=== PATIENT | male | born 1940 | race African-American/Black ===

== ENCOUNTER 2017-06-29 13:51 | Inpatient (IN) | payer MEDICARE, MEDICAID ==
[~2017-06-29] VITALS: Ht 193 cm; Wt 60.4 kg
[2017-06-29] MEDS ORDERED: diphenhydrAMINE HCL 50 MG/ML VIAL IM PRN (17:45)
[2017-06-29] MEDS ORDERED: ALUMINUM/MAGNESIUM/SIMETH 30 ML CUP PO PRN (17:45)
[2017-06-29] MEDS ORDERED: MAGNESIUM HYDROXIDE SUSP 30 ML CUP PO PRN (17:45)
[2017-06-29] MEDS ORDERED: diphenhydrAMINE HCL 50 MG CAP PO PRN (17:45)
[2017-06-29] MEDS ORDERED: LORazepam 2 MG/ML VIAL IM PRN (17:45)
[2017-06-29 18:20] VITALS: BP 102/79; PULSE 108; RESP 16; TEMP 98.2; O2SAT 98
[2017-06-29] MEDS ORDERED: PILL SPLITTER OTHER PRN (18:30)
[2017-06-29] MEDS: CEFUROXIME AXETIL 500 MG TAB PO SCH (20:47)
[2017-06-29] MEDS: risperiDONE 0.25 MG TAB PO SCH ×2 (20:47→21:00)
[2017-06-29] MEDS: ATORVASTATIN 40 MG TAB PO SCH (20:47)
[2017-06-30] MEDS ORDERED: RESP: ALBUTEROL 2.5 MG/IPRATROPIUM 0.5 MG NEB (SCH) NEB ONE (05:00)
[2017-06-30 06:09] VITALS: BP 112/66; PULSE 101; RESP 18; TEMP 98; O2SAT 94
[2017-06-30] MEDS: DIGOXIN 0.125 MG TAB PO SCH (08:11)
[2017-06-30] MEDS: CEFUROXIME AXETIL 500 MG TAB PO SCH ×2 (08:11→21:08)
[2017-06-30] MEDS: AMIODARONE 200 MG TAB PO SCH (08:11)
[2017-06-30] MEDS: TAMSULOSIN HCL 0.4 MG CAP PO SCH (08:11)
[2017-06-30] MEDS: ACETAMINOPHEN 325 MG TAB PO PRN ×2 (08:12→09:04)
[2017-06-30] MEDS: METOPROLOL SUCCINATE 25 MG EXTENDED RELEASE TAB PO SCH (08:13)
[2017-06-30] MEDS: NICOTINE 21 MG/24 HR PATCH T-DERMAL SCH (09:00)
[2017-06-30] MEDS: REMOVE OLD PATCH T-DERMAL SCH (09:00)
[2017-06-30] MEDS ORDERED: RESP: ALBUTEROL 2.5 MG/IPRATROPIUM 0.5 MG NEB (PRN) NEB (09:15)
[2017-06-30 10:28] LABS: ALT (GPT) 31 U/L (12-78); ANION GAP 9 MEQ/L (5-15); AST (GOT) 39 U/L (15-37); BICARBONATE 29.2 MEQ/L (21.0-32.0); BLOOD UREA NITROGEN 45 MG/DL (7-18); CHLORIDE 107 MEQ/L (98-107); GLOMERULAR FILTRATION RATE 58 ML/MIN (>89); POTASSIUM 3.8 MEQ/L (3.5-5.1); SODIUM (NA) 145 MEQ/L (136-145)
[2017-06-30 10:54] LABS: ALKALINE PHOSPHATASE 64 U/L (45-117); HDL CHOLESTEROL 55.1 MG/DL (40.0-60.0); LDL CHOLESTEROL 50 MG/DL (0-99); TOTAL BILIRUBIN ADULT 0.8 MG/DL (0.2-1.0)
[2017-06-30 11:11] LABS: HEMOGLOBIN A1a 1.1 %; HEMOGLOBIN A1b 2.4 %; HEMOGLOBIN Ao 80.3 %; HEMOGLOBIN P3 7.6 %
[2017-06-30 11:27] LABS: AUTOMATED NEUTROPHIL # 6.4 TH/MM3 (1.8-7.7); BASOPHIL % 0.5 % (0.0-2.0); EOSINOPHIL % 0.5 % (0.0-4.0); HEMATOCRIT 35.2 % (39.0-51.0); HEMO FLAGS DIFF FINAL; LYMPHOCYTE # 1.3 TH/MM3 (1.0-4.8); MEAN CELL VOLUME 89.8 FL (80.0-100.0); MEAN CORPUSCULAR HEMOGLOBIN 29.4 PG (27.0-34.0); MEAN CORPUSCULAR HGB CONC 32.8 % (32.0-36.0); MONO % 8.9 % (0.0-8.0); NEUT % 75.1 % (16.0-70.0); PLATELET COUNT 142 TH/MM3 (150-450); RED BLOOD COUNT 3.92 MIL/MM3 (4.50-5.90); RED CELL DISTRIBUTION WIDTH 13.8 % (11.6-17.2); WHITE BLOOD COUNT 8.5 TH/MM3 (4.0-11.0)
[2017-06-30] MEDS ORDERED: ACETAMINOPHEN 325 MG TAB PO PRN (12:00)
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
[2017-06-30] MEDS: traMADol HCL 50 MG TAB PO PRN ×2 (12:30→21:20)
--- NOTE | 2017-06-30 13:17 | PD.CONS ---
HPI Service [facility] Hospitalists Consult Requested By Psychiatry. Reason for Consult Shortness of breath, medical management. Primary Care Physician Non-Staff Diagnoses: History of Present Illness Mr. Bae is a 77 year old [place]cu[place] male who a history of cardiomyopathy ( EF 20%) s/p AICD, paroxysmal atrial fibrillation, PVD, CKD who was admitted to the hospital under lockett act. Hospitalist service was consulted for medical management. At the time of this interview, patient is resting in bed and comfortable in room air. He reports shortness of breath that started about a year ago. He denies any cough, fever, chills. No abdominal pain. No changes in bowel or bladder habits. He reports no leg swelling. Review of Systems Except as stated in HPI: all other systems reviewed are Neg Past Family Social History Allergies: Coded Allergies: No Known Allergies (Unverified , 06/29/17) Past Medical History Cardiomyopathy Systolic CHF CKD Past Surgical History He has had right toe surgery. No other major surgery. Reported Medications Current Medications Lorazepam (Ativan) 0.5 mg Q12H PRN PO MODERATE TO SEVERE ANXIETY; Start at 17:45 Lorazepam (Ativan Inj) 0.5 mg Q12H PRN IM MODERATE TO SEVERE ANXIETY; Start at 17:45 Diphenhydramine HCl (Benadryl) 25 mg Q6H PRN PO For mild anxiety and/or EPS Last administered on 06/29/17t 21:17; Start 06/29/17 at 17:45 Diphenhydramine HCl (Benadryl Inj) 25 mg Q6H PRN IM For mild anxiety and/or EPS ; Start 06/29/17 at 17:45 Acetaminophen (Tylenol) 650 mg Q4H PRN PO Pain 1-5 or Temp >101F Last administered on 06/30/17 09:04; Start 06/29/17 at 17:45 Magnesium Hydroxide (Milk Of Magnesia Liq) 30 ml DAILY PRN PO CONSTIPATION; Start 06/29/17 at 17:45 Al Hydrox/Mg Hydrox/Simethicone (Mag-Al Plus Susp Liq) 30 ml Q6H PRN PO DYSPEPSIA; Start 06/29/17 at 17:45 Nicotine (Habitrol 21 Mg Patch.24 Hr) 1 patch DAILY T-DERMAL ; Start 06/30/17 at 09:00 Miscellaneous Information 1 DAILY T-DERMAL ; Start 06/30/17 at 09:00 Amiodarone HCl (Cordarone) 200 mg DAILY PO Last administered on 06/30/17 08:11 ; Start 06/30/17 at 09:00 Atorvastatin Calcium (Lipitor) 40 mg HS PO Last administered on 06/30/17 21:08 ; Start 06/29/17 at 21:00 Cefuroxime Axetil (Ceftin) 500 mg Q12HR PO Last administered on 06/30/17 21:08 ; Start 06/29/17 at 21:00; Stop 07/04/17 at 20:59 Digoxin (Lanoxin) 0.125 mg MoWeFr@0900 PO Last administered on 06/30/17 08:11 ; Start 06/30/17 at 09:00 Metoprolol Succinate (Toprol Xl) 12.5 mg DAILY PO Last administered on 08:13; Start 06/30/17 at 09:00 Risperidone (risperDAL) 0.25 mg HS PO ; Start 06/29/17 at 21:00; Stop 06/30/17 at 12:21; Status DC Tamsulosin HCl (Flomax) 0.4 mg DAILY PO Last administered on 06/30/17 08:11; Start 06/30/17 at 09:00 Miscellaneous (Pill Splitter) 1 ea UNSCH PRN OTHER SEE LABEL COMMENTS; Start at 18:30 Albuterol/ Ipratropium (Duoneb Neb) 1 ampule NOW ONCE NEB Last administered on 06/30/17 05:00; Start 06/30/17 at 05:00; Stop 06/30/17 at 05:01; Status DC Albuterol/ Ipratropium (Duoneb Neb) 1 ampule Q4HR NEB PRN NEB DYSPNEA; Start at 09:15 Tramadol HCl (Ultram) 50 mg Q12H PRN PO PAIN SCALE 6 TO 10 Last administered on 06/30/17 21:20; Start 06/30/17 at 09:15 Acetaminophen (Tylenol) 650 mg Q4H PRN PO Pain 1-5 or Temp >101F; Start at 12:00 Family History Mother - heart disease Father - enlarged heart. Social History Denies using tobacco, alcohol or illicit drugs. Physical Exam Vital Signs Vital Signs Date Time Temp Pulse Resp B/P (MAP) Pulse Ox O2 Delivery O2 Flow Rate FiO2 06/30/17 06:09 98.0 101 18 112/66 (81) 94 06/29/17 18:20 98.2 108 16 102/79 (87) 98 Physical Exam GENERAL: This is a well-nourished, well-developed patient, in no apparent distress. SKIN: No rashes, ecchymoses or lesions. Warm and dry. HEAD: Atraumatic. Normocephalic. No temporal or scalp tenderness. EYES: Pupils equal round and reactive. No injection or drainage. ENT: Nose without bleeding, purulent drainage or septal hematoma. Airway patent. NECK: Trachea midline. No lymphadenopathy. Supple, nontender, no meningeal signs. CARDIOVASCULAR: Regular rate and rhythm without murmurs, gallops, or rubs. No JVD. RESPIRATORY: Clear to auscultation. Breath sounds equal bilaterally. No wheezes , rales, or rhonchi. GASTROINTESTINAL: Abdomen soft, non-tender, nondistended. No guarding. MUSCULOSKELETAL: Extremities without clubbing, cyanosis, or edema. NEUROLOGICAL: Awake and alert. Cranial nerves II through XII intact. No focal neurological deficits. Normal speech. Laboratory Laboratory Tests Test 06/30/17 07:47 White Blood Count 8.5 Red Blood Count 3.92 Hemoglobin 11.5 Hematocrit 35.2 Mean Corpuscular Volume 89.8 Mean Corpuscular Hemoglobin 29.4 Mean Corpuscular Hemoglobin Concent 32.8 Red Cell Distribution Width 13.8 Platelet Count 142 Mean Platelet Volume 9.0 Neutrophils (%) (Auto) 75.1 Lymphocytes (%) (Auto) 15.0 Monocytes (%) (Auto) 8.9 Eosinophils (%) (Auto) 0.5 Basophils (%) (Auto) 0.5 Neutrophils # (Auto) 6.4 Lymphocytes # (Auto) 1.3 Monocytes # (Auto) 0.8 Eosinophils # (Auto) 0.0 Basophils # (Auto) 0.0 CBC Comment DIFF FINAL Differential Comment Blood Urea Nitrogen 45 Creatinine 1.44 Random Glucose 120 Total Protein 8.0 Albumin 3.4 Calcium Level 9.0 Alkaline Phosphatase 64 Aspartate Amino Transf (AST/SGOT) 39 Alanine Aminotransferase (ALT/SGPT) 31 Total Bilirubin 0.8 Sodium Level 145 Potassium Level 3.8 Chloride Level 107 Carbon Dioxide Level 29.2 Anion Gap 9 Estimat Glomerular Filtration Rate 58 Hemoglobin A1c 6.5 Triglycerides Level 106 Cholesterol Level 126 LDL Cholesterol 50 HDL Cholesterol 55.1 Cholesterol/HDL Ratio 2.28 Vitamin B12 Level 1246 25-Hydroxy Vitamin D Total 10.2 Thyroid Stimulating Hormone 3rd Gen 4.720 Result Diagram: 06/30/17 0747 06/30/17 0747 Imaging Last Impressions Chest X-Ray 06/30/17 0000 Signed Impressions: Service Date/Time: Friday, June 30, 2017 12:23 - CONCLUSION: 1. Cardiomegaly without radiographic evidence to suggest CHF. 2. Blunting of the right costophrenic angle either related to a tiny effusion or pleural scarring. Riley Elena Jr., MD Assessment and Plan Problem List: (1) Adjustment disorder with mixed disturbance of emotions and conduct ICD Code: F43.25 - Adjustment disorder with mixed disturbance of emotions and conduct (2) Diabetes mellitus ICD Code: E11.9 - Type 2 diabetes mellitus without complications (3) CKD (chronic kidney disease) stage 3, GFR 30-59 ml/min ICD Code: N18.3 - Chronic kidney disease, stage 3 (moderate) (4) Systolic CHF, chronic ICD Code: I50.22 - Chronic systolic (congestive) heart failure (5) Cardiomyopathy ICD Code: I42.9 - Cardiomyopathy, unspecified Assessment and Plan Mr. Bae is a 77 year old male with a history of Cardiomyopathy, systolic CHF , CKD who was admitted to the psychiatry service under lockett act. Hospitalist service was consulted for medical management. - Adjustment disorder - management per psychiatry - Cardiomyopathy - EF reportedly 20%. - Chronic systolic congestive heart failure - Paroxysmal atrial fibrillation - Continue metoprolol succinate 12.5mg Qday, digoxin 0.125mg Qday, Amiodarone 200mg Qday - Continue Lipitor 40mg QHS. - If creatinine 1.44 is this patient's baseline, we should also consider GIULIANA inhibitor - BP is on the lower side. It would be difficult to initiate any diuretics ( Lasix, Aldactone). - [id number] score would be 5 (Age, DM, CHF, PVD) - Unless there is any contraindications, patient would benefit from anti- coagulation. Recommend apixaban 5mg BID. - Will discuss with family members regarding anti-coagulation. - Dyspnea - likely due to cardiomyopathy, CHF. - Will continue DuoNeb. CXR reviewed by me on 06/30/2017 - shows enlarged heart. - Will obtain BNP. - Supplemental O2 to keep O2 sat > 88%. - CKD stage III - Continue to monitor periodically. Avoid nephrotoxins. - BPH - Continue Tamsulosin 0.4mg Qday. - Elevated TSH - will check free T4. Suspected subclinical hypothyroidism. Full code. Ambulation. Thank you for the consult. We will continue to follow this patient with you. Maynor Davenport DO Jun 30, 2017 13:16
--- NOTE | 2017-06-30 13:43 | RADRPT ---
EXAM DATE/TIME: 06/30/2017 12:23 [place] COMPARISON: No previous studies available for comparison. INDICATIONS : Evaluate for respiratory disease. MEDICAL HISTORY : None. SURGICAL HISTORY : Pacemaker. ENCOUNTER: Initial ACUITY: 1 day PAIN SCORE: 0/10 LOCATION: chest FINDINGS: A single portable frontal view of the chest shows moderate cardiomegaly. No significant pulmonary vas cular engorgement. Lungs are hyperaerated. Blunting of the lateral right costophrenic angle. No infil trate. Pacing device overlies the left chest. Scoliotic spine. CONCLUSION: 1. Cardiomegaly without radiographic evidence to suggest CHF. 2. Blunting of the right costophrenic angle either related to a tiny effusion or pleural scarring. Riley Elena Jr., MD on June 30, 2017 at 13:40 Board Certified Radiologist. This report was verified electronically.
[2017-06-30 16:30] VITALS: BP 97/65; PULSE 81; RESP 18; TEMP 97.5; O2SAT 94
--- NOTE | 2017-06-30 16:41 | EKG ---
Date Performed: 06/30/2017 Time Performed: 10:23:40 PTAGE: 77 years EKG: ELECTRONIC VENTRICULAR PACEMAKER MARKED ST ELEVATION, CONSIDER ANTEROLATERAL INJURY MARKED ST DEPRESSION, CONSIDER SUBENDOCARDIAL INJURY ACUTE PA NO PREVIOUS TRACING DOCTOR: Julia Cope Interpretating Date/Time 06/30/2017 16:38:43
[2017-06-30] MEDS: ATORVASTATIN 40 MG TAB PO SCH (21:08)
[2017-07-01 05:25] VITALS: BP 103/57; PULSE 56; RESP 18; TEMP 97.7; O2SAT 94
[2017-07-01] MEDS: AMIODARONE 200 MG TAB PO SCH (08:47)
[2017-07-01] MEDS: CEFUROXIME AXETIL 500 MG TAB PO SCH ×2 (08:47→20:38)
[2017-07-01] MEDS: TAMSULOSIN HCL 0.4 MG CAP PO SCH (09:00)
[2017-07-01] MEDS: NICOTINE 21 MG/24 HR PATCH T-DERMAL SCH (09:00)
[2017-07-01] MEDS: REMOVE OLD PATCH T-DERMAL SCH (09:00)
[2017-07-01] MEDS: METOPROLOL SUCCINATE 25 MG EXTENDED RELEASE TAB PO SCH (09:00)
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
--- NOTE | 2017-07-01 14:55 | HHI.PYPN ---
Subjective Remarks Patient seen in his room with nurse Courtney, chart review, patient laying in bed with nasal oxygen on he is somewhat calmer and less irritable today than yesterday. Though he still minimizes behaviors that led to this hospitalization. However he has been no significant behavioral problems on the unit. For now continue treatment. Placement may become problematic Review of Systems Except as stated in HPI: all other systems reviewed are Neg Objective Alert: Yes [place]: Person, Place, Date Mood: Anxious, Calm, Depressed Affect: Restricted Memory Intact: Comment (very poor) Hallucinations: Other (denies) Delusions: Yes Delusion Type: Grandiose (vague), Paranoid (vague) Suicidal: Ideation (denies) Homicidal: Ideation (denies) Insight/Judgment Poor Vitals/IOs Vital Signs Date Time Temp Pulse Resp B/P (MAP) Pulse Ox O2 Delivery O2 Flow Rate FiO2 07/01/17 05:25 97.7 56 18 103/57 (72) 94 Intake and Output 07/01/17 07/01/17 07/02/17 08:00 16:00 00:00 Intake Total 480 ml Balance 480 ml Assessment & Plan Problem List: (1) Adjustment disorder with mixed disturbance of emotions and conduct ICD Codes: F43.25 - Adjustment disorder with mixed disturbance of emotions and conduct Assessment & Plan Estimated LOS: days patient remains somewhat depressed confused with a decrease in his irritability. Compliant medications Justification for Cont. Inpt. At the present time patient will decompensate if placed in a lower level of care Discharge Planning To be determined Request HC Surrog/Guard Advoc?: No Eliu Valdivia MD Jul 01, 2017 14:55
[2017-07-01] MEDS: traMADol HCL 50 MG TAB PO PRN (16:23)
--- NOTE | 2017-07-01 17:31 | HHI.PR ---
Subjective Remarks Follow up for dyspnea, systolic CHF, cardiomyopathy. Patient is resting in bed, currently on O2 via nasal cannula. He gets agitated when start any discussion about his cardiomyopathy or atrial fibrillation. He is not in any acute distress. Objective Vitals Vital Signs Date Time Temp Pulse Resp B/P (MAP) Pulse Ox O2 Delivery O2 Flow Rate FiO2 07/01/17 05:25 97.7 56 18 103/57 (72) 94 I/O 06/30/17 06/30/17 06/30/17 07/01/17 07/01/17 07/01/17 07:00 15:00 23:00 07:00 15:00 23:00 Intake Total 820 ml 780 ml 480 ml Balance 820 ml 780 ml 480 ml Intake Oral 820 ml 780 ml 480 ml # Voids 2 5 2 Result Diagram: 06/30/17 0747 06/30/17 0747 Imaging Last Impressions Chest X-Ray 06/30/17 0000 Signed Impressions: Service Date/Time: Friday, June 30, 2017 12:23 - CONCLUSION: 1. Cardiomegaly without radiographic evidence to suggest CHF. 2. Blunting of the right costophrenic angle either related to a tiny effusion or pleural scarring. Riley Elena Jr., MD Objective Remarks GENERAL: Alert, NAD. SKIN: Warm and dry. HEAD: Normocephalic. EYES: No scleral icterus. No injection or drainage. NECK: Supple, trachea midline. No JVD or lymphadenopathy. CARDIOVASCULAR: Regular rate and rhythm without murmurs, gallops, or rubs. RESPIRATORY: Moderate air entry. No appreciable wheezing or crackles. GASTROINTESTINAL: Abdomen soft, non-tender, nondistended. MUSCULOSKELETAL: No cyanosis, or edema. BACK: Nontender without obvious deformity. No CVA tenderness. Procedures None. A/P Problem List: (1) Adjustment disorder with mixed disturbance of emotions and conduct ICD Code: F43.25 - Adjustment disorder with mixed disturbance of emotions and conduct (2) Diabetes mellitus ICD Code: E11.9 - Type 2 diabetes mellitus without complications (3) CKD (chronic kidney disease) stage 3, GFR 30-59 ml/min ICD Code: N18.3 - Chronic kidney disease, stage 3 (moderate) (4) Systolic CHF, chronic ICD Code: I50.22 - Chronic systolic (congestive) heart failure (5) Cardiomyopathy ICD Code: I42.9 - Cardiomyopathy, unspecified Assessment and Plan Mr. Bae is a 77 year old male with a history of Cardiomyopathy, systolic CHF , CKD who was admitted to the psychiatry service under lockett act. Hospitalist service was consulted for medical management. - Adjustment disorder - management per psychiatry - Cardiomyopathy - EF reportedly 20%. - Chronic systolic congestive heart failure - Paroxysmal atrial fibrillation - Continue metoprolol succinate 12.5mg Qday, digoxin 0.125mg Qday, Amiodarone 200mg Qday - Continue Lipitor 40mg QHS. - If creatinine 1.44 is this patient's baseline, we should also consider GIULIANA inhibitor - BP is on the lower side. It would be difficult to initiate any diuretics ( Lasix, Aldactone). - [id number] score would be 5 (Age, DM, CHF, PVD) - I have tried to contact patient's daughter without success. - Patient is currently hemodynamically stable, CHF is well compensated. Afib is well controlled. - I would recommend discussion with outpatient PCP and/or outpatient cardiology regarding Anti-coagulation. - It would be strongly advisable to obtain an outpatient pumper helper with regards to Cardiomyopathy and Afib. - Dyspnea - likely due to cardiomyopathy, CHF. - Will continue DuoNeb. CXR reviewed by me on 06/30/2017 - shows enlarged heart. - BNP is 1456. No evidence of fluid overload, however. BP is on the lower side. Patient will not tolerate diuretics well. - Supplemental O2 to keep O2 sat > 88%. - CKD stage III - Continue to monitor periodically. Avoid nephrotoxins. - BPH - Continue Tamsulosin 0.4mg Qday. - Elevated TSH - Free T4 within normal range. This is likely subclinical hypothyroidism. Full code. Ambulation. Patient can be discharged from medical standpoint. Will sign off. Please contact [facility] if there is any question. Maynor Davenport DO Jul 01, 2017 17:31
[2017-07-01 17:59] VITALS: BP 98/74; PULSE 81; RESP 18; TEMP 98.1; O2SAT 100
[2017-07-01] MEDS: ATORVASTATIN 40 MG TAB PO SCH (20:38)
[2017-07-02] MEDS: LORazepam 0.5 MG TAB PO PRN ×2 (02:28→21:15)
[2017-07-02] MEDS: traMADol HCL 50 MG TAB PO PRN ×2 (04:50→21:15)
[2017-07-02 05:28] VITALS: BP 96/51; PULSE 93; RESP 15; TEMP 97.6; O2SAT 95
--- NOTE | 2017-07-02 07:18 | MB ---
cc: RAEGAN KLEIN M.D. DATE OF CONSULTATION 07/01/2017 REASON FOR CONSULTATION Dementia. HISTORY OF PRESENT ILLNESS Mr. Bae is a 77-year-old man who was admitted to the Psychiatry Service under Briscoe Act. He has a history of cardiomyopathy as well as atrial fibrillation. He has been having difficulty with his memory and agitation as well. PAST MEDICAL HISTORY 1. Remarkable for cardiomyopathy with an EF of 20%. 2. Atrial fibrillation. 3. Congestive heart failure. 4. Stage III kidney disease. 5. BPH. 6. Hypothyroidism. CURRENT MEDICATIONS 1. Tylenol. 2. DuoNeb. 3. Ultram. 4. Furantoin. 5. Cordarone. 6. Lanoxin. 7. Toprol XL. 8. Flomax. 9. Lipitor. 10. Ceftin. 11. Ativan. 12. Benadryl. NEUROLOGIC EXAMINATION Blood pressure is 98/74, pulse 81, respirations 18, temperature 98 degrees. Higher Cortical Function - He is alert, oriented x 3. Recalls 1/3 objects in 3 minutes. Remote memory is intact. He can name objects normally. Speech is within normal limits with normal fluency. He follows commands well. Normal comprehension. There is no neglect phenomena, no frontal release signs. Cranial nerves are intact. On motor exam he has got 5/5 strength of all groups. There is no drift. Muscle tone is normal. Reflexes symmetric. Gait is normal. LABORATORY DATA White count 8500, hemoglobin 11.5, hematocrit of 37%, platelet count 142,000. Sodium was 145, potassium 3.8, chloride 107, CO2 29, BUN is 45, creatinine 1.44, GFR is 58, glucose 120, calcium 9, AST 39, ALT 31, BNP 1456. B12 1246. T4 1.38, TSH 4.72. IMPRESSION The patient has evidence of a mild dementia, mainly with recent memory loss. RECOMMENDATIONS 1. We will get a CT of the brain to rule out a multi-infarct dementia. 2. Consider a trial of low-dose Aricept 5 mg daily. MD JAVIER Topete/SCOOTER /7:16 PM /7:08 AM
[2017-07-02] MEDS: CEFUROXIME AXETIL 500 MG TAB PO SCH ×2 (08:35→21:06)
[2017-07-02] MEDS: AMIODARONE 200 MG TAB PO SCH (08:35)
[2017-07-02] MEDS: TAMSULOSIN HCL 0.4 MG CAP PO SCH (09:00)
[2017-07-02] MEDS: DIGOXIN 0.125 MG TAB PO SCH (09:00)
[2017-07-02] MEDS: NICOTINE 21 MG/24 HR PATCH T-DERMAL SCH (09:00)
[2017-07-02] MEDS: METOPROLOL SUCCINATE 25 MG EXTENDED RELEASE TAB PO SCH (09:00)
[2017-07-02] MEDS: REMOVE OLD PATCH T-DERMAL SCH (09:00)
--- NOTE | 2017-07-02 11:09 | HHI.PYPN ---
Subjective Remarks Patient seen in his room with nurse Kat, chart review, patient compliant medication. Patient sitting in his room with his nasal oxygen, is very mildly dyspneic. He is somewhat critical complaining about his oxygen equipment, his stay here, however he also did make a joke about his roommate. He does denies suicidality homicidality or voices at this Review of Systems Except as stated in HPI: all other systems reviewed are Neg Objective Alert: Yes [place]: Person, Place, Date Mood: Anxious, Calm, Depressed Affect: Restricted Memory Intact: Comment (very poor) Hallucinations: Other (denies) Delusions: Yes Delusion Type: Grandiose (vague), Paranoid (vague) Suicidal: Ideation (denies) Homicidal: Ideation (denies) Insight/Judgment Very poor Vitals/IOs Vital Signs Date Time Temp Pulse Resp B/P (MAP) Pulse Ox O2 Delivery O2 Flow Rate FiO2 07/02/17 05:28 97.6 93 15 96/51 (66) 95 Intake and Output 07/02/17 07/02/17 07/03/17 08:00 16:00 00:00 Intake Total 360 ml 720 ml Balance 360 ml 720 ml Assessment & Plan Problem List: (1) Adjustment disorder with mixed disturbance of emotions and conduct ICD Codes: F43.25 - Adjustment disorder with mixed disturbance of emotions and conduct Assessment & Plan Estimated LOS: days patient continues irritable somewhat angry, though compliant medications. For now continue treatment Justification for Cont. Inpt. At this time patient decompensated placed in a lower level of care Discharge Planning To be determined Request HC Surrog/Guard Advoc?: Eliu Shepherd MD Jul 02, 2017 11:09
--- NOTE | 2017-07-02 16:24 | RADRPT ---
EXAM DATE/TIME: 07/02/2017 15:40 [place] COMPARISON: No previous studies available for comparison. INDICATIONS : Dementia, behavioral disturbance. RADIATION DOSE: 42.95 CTDIvol (mGy) MEDICAL HISTORY : Cardiovascular disease. Hypertension. SURGICAL HISTORY : Pacemaker. ENCOUNTER: Initial ACUITY: 1 day PAIN SCALE: 0/10 LOCATION: cranial TECHNIQUE: Multiple contiguous axial images were obtained of the head. Using automated exposure control and adj ustment of the mA and/or kV according to patient size, radiation dose was kept as low as reasonably a chievable to obtain optimal diagnostic quality images. DICOM format image data is available electro nically for review and comparison. FINDINGS: CEREBRUM: The ventricles are normal for age. No evidence of midline shift, mass lesion, hemorrhage or acute in farction. No extra-axial fluid collections are seen. POSTERIOR FOSSA: The cerebellum and brainstem are intact. The 4th ventricle is midline. The cerebellopontine angle i s unremarkable. EXTRACRANIAL: The visualized portion of the orbits is intact. SKULL: The calvaria is intact. No evidence of skull fracture. CONCLUSION: Negative for acute process. Willy Heller MD FACR on July 02, 2017 at 16:22 Board Certified Radiologist. This report was verified electronically.
--- NOTE | 2017-07-02 17:05 | HHI.PR ---
Review/Management Diagnosis dementia Plan consider trial of aricept 5 mg daily Diagnosis/Plan: Subjective Subjective Comments No acute events reported Active Medications Current Medications Medications (Trade) Dose Ordered Sig/Javon Route Start Time Stop Time Status Last Admin (Ativan) 0.5 mg Q12H PRN PO 06/29/17 17:45 07/02/17 02:28 (Ativan Inj) 0.5 mg Q12H PRN IM 06/29/17 17:45 (Benadryl) 25 mg Q6H PRN PO 06/29/17 17:45 06/29/17 21:17 (Benadryl Inj) 25 mg Q6H PRN IM 06/29/17 17:45 (Tylenol) 650 mg Q4H PRN PO 06/29/17 17:45 06/30/17 09:04 (Milk Of Magnesia Liq) 30 ml DAILY PRN PO 06/29/17 17:45 (Mag-Al Plus Susp Liq) 30 ml Q6H PRN PO 06/29/17 17:45 (Habitrol 21 Mg Patch.24 Hr) 1 patch DAILY T-DERMAL 06/30/17 09:00 Miscellaneous Information 1 DAILY T-DERMAL 06/30/17 09:00 (Cordarone) 200 mg DAILY PO 06/30/17 09:00 07/02/17 08:35 (Lipitor) 40 mg HS PO 06/29/17 21:00 07/01/17 20:38 (Ceftin) 500 mg Q12HR PO 06/29/17 21:00 07/04/17 20:59 07/02/17 08:35 (Lanoxin) 0.125 mg MoWeFr@0900 PO 06/30/17 09:00 06/30/17 08:11 (Toprol Xl) 12.5 mg DAILY PO 06/30/17 09:00 06/30/17 08:13 (Flomax) 0.4 mg DAILY PO 06/30/17 09:00 06/30/17 08:11 (Pill Splitter) 1 ea UNSCH PRN OTHER 06/29/17 18:30 (Duoneb Neb) 1 ampule Q4HR NEB PRN NEB 06/30/17 09:15 (Ultram) 50 mg Q12H PRN PO 06/30/17 09:15 07/02/17 04:50 (Tylenol) 650 mg Q4H PRN PO 06/30/17 12:00 Allergies Allergies Coded Allergies No Known Allergies (Unverified06/29/17) Exam I&O / VS 07/02/17 07/02/17 07/03/17 15:00 23:00 07:00 Intake Total 1200 ml Balance 1200 ml Intake Oral 1200 ml Vital Signs Date Time Temp Pulse Resp B/P (MAP) Pulse Ox O2 Delivery O2 Flow Rate FiO2 07/02/17 05:28 97.6 93 15 96/51 (66) 95 07/01/17 17:59 98.1 81 18 98/74 (82) [address] brain--normal for age Adam Malik PhD Jul 02, 2017 17:05
[2017-07-02 17:16] VITALS: BP 104/66; PULSE 110; RESP 18; TEMP 98.2; O2SAT 98
[2017-07-02] MEDS: ATORVASTATIN 40 MG TAB PO SCH (21:06)
[2017-07-03 06:06] VITALS: BP 89/53; PULSE 94; TEMP 98.2; O2SAT 97
[2017-07-03] MEDS: LORazepam 0.5 MG TAB PO PRN (08:43)
[2017-07-03] MEDS: CEFUROXIME AXETIL 500 MG TAB PO SCH ×2 (08:44→20:53)
[2017-07-03] MEDS: TAMSULOSIN HCL 0.4 MG CAP PO SCH (08:44)
[2017-07-03] MEDS: traMADol HCL 50 MG TAB PO PRN ×2 (08:45→21:06)
[2017-07-03] MEDS: AMIODARONE 200 MG TAB PO SCH (08:47)
[2017-07-03] MEDS: METOPROLOL SUCCINATE 25 MG EXTENDED RELEASE TAB PO SCH (08:47)
[2017-07-03] MEDS: NICOTINE 21 MG/24 HR PATCH T-DERMAL SCH (08:48)
[2017-07-03] MEDS: REMOVE OLD PATCH T-DERMAL SCH (08:48)
[2017-07-03 11:22] VITALS: BP 124/80; PULSE 104; O2SAT 98
--- NOTE | 2017-07-03 13:32 | HHI.PYPN ---
Subjective Remarks Patient was seen and case discussed with nursing. Patient is oppositional and guarded during the interview. Continues to deny his behavior turns his grandchild before admission. Pressure was low was repeated and was within normal limits. Patient has been behaving well on the unit. No physical or verbal outbursts. Compliant with medications Objective Alert: Yes [place]: Person, Place, Date Mood: Anxious, Calm, Depressed Affect: Blunted Memory Intact: Comment (very poor) Hallucinations: Other (denies) Delusions: Yes Delusion Type: Grandiose (vague), Paranoid (vague) Suicidal: Ideation (denies) Homicidal: Ideation (denies) Insight/Judgment Poor Vitals/IOs Vital Signs Date Time Temp Pulse Resp B/P (MAP) Pulse Ox O2 Delivery O2 Flow Rate FiO2 07/03/17 11:22 104 124/80 (95) 98 07/03/17 06:06 98.2 07/02/17 17:16 18 Assessment & Plan Problem List: (1) Adjustment disorder with mixed disturbance of emotions and conduct ICD Codes: F43.25 - Adjustment disorder with mixed disturbance of emotions and conduct Assessment & Plan Continue current treatment plan Justification for Cont. Inpt. Patient will decompensate in a less restrictive setting Request HC Surrog/Guard Advoc?: No Ward Enamorado DO Jul 03, 2017 13:32
[2017-07-03] MEDS: ATORVASTATIN 40 MG TAB PO SCH (20:54)
[2017-07-04 05:43] VITALS: BP 123/70; PULSE 71; RESP 18; TEMP 98.1; O2SAT 98
[2017-07-04] MEDS: traMADol HCL 50 MG TAB PO PRN ×3 (06:42→21:07)
[2017-07-04] MEDS: REMOVE OLD PATCH T-DERMAL SCH ×2 (09:00→14:39)
[2017-07-04] MEDS: TAMSULOSIN HCL 0.4 MG CAP PO SCH ×2 (09:00→14:39)
[2017-07-04] MEDS: AMIODARONE 200 MG TAB PO SCH ×2 (09:00→14:38)
[2017-07-04] MEDS: NICOTINE 21 MG/24 HR PATCH T-DERMAL SCH ×2 (09:00→14:40)
[2017-07-04] MEDS: CEFUROXIME AXETIL 500 MG TAB PO SCH ×2 (09:00→14:40)
[2017-07-04] MEDS: METOPROLOL SUCCINATE 25 MG EXTENDED RELEASE TAB PO SCH ×2 (09:00→14:39)
--- NOTE | 2017-07-04 11:05 | HHI.PYPN ---
Subjective Remarks Patient was seen and case discussed with nursing. Patient is refusing all of his medications. Psychoeducation was done that a medical doctor reviewed his medications and prescribed appropriate doses. Patient became belligerent and argumentative. Seclusive to room. Objective Alert: Yes [place]: Person, Place Mood: Depressed, Oppositional Affect: Other (irritable) Memory Intact: Comment (very poor) Hallucinations: Other (denies) Delusions: Yes Delusion Type: Grandiose (vague), Paranoid (concerning medications) Suicidal: Ideation (denies) Homicidal: Ideation (denies) Insight/Judgment Poor Vitals/IOs Vital Signs Date Time Temp Pulse Resp B/P (MAP) Pulse Ox O2 Delivery O2 Flow Rate FiO2 07/04/17 05:43 98.1 71 18 123/70 (87) 98 Intake and Output 07/04/17 07/04/17 07/05/17 08:00 16:00 00:00 Intake Total 360 ml Balance 360 ml Assessment & Plan Problem List: (1) Adjustment disorder with mixed disturbance of emotions and conduct ICD Codes: F43.25 - Adjustment disorder with mixed disturbance of emotions and conduct Assessment & Plan Continue current treatment plan Justification for Cont. Inpt. Patient will decompensate in a less restrictive setting Request HC Surrog/Guard Advoc?: No Ward Enamorado DO Jul 04, 2017 11:05
[2017-07-04 17:54] VITALS: BP 124/81; PULSE 94; RESP 16; TEMP 97.7; O2SAT 99
[2017-07-04] MEDS: ATORVASTATIN 40 MG TAB PO SCH (21:06)
[2017-07-04] MEDS: LORazepam 0.5 MG TAB PO PRN (21:07)
[2017-07-05 05:17] VITALS: BP 107/58; PULSE 119; RESP 18; TEMP 97.9
[2017-07-05] MEDS: METOPROLOL SUCCINATE 25 MG EXTENDED RELEASE TAB PO SCH (09:00)
[2017-07-05] MEDS: DIGOXIN 0.125 MG TAB PO SCH (09:00)
[2017-07-05] MEDS: TAMSULOSIN HCL 0.4 MG CAP PO SCH (09:00)
[2017-07-05] MEDS: AMIODARONE 200 MG TAB PO SCH (09:00)
[2017-07-05] MEDS ORDERED: METOPROLOL TARTRATE 25 MG TAB PO ONE ×2 (11:00→18:15)
[2017-07-05] MEDS ORDERED: DIGOXIN 0.25 MG TAB PO ONE (11:00)
--- NOTE | 2017-07-05 11:44 | HHI.PR ---
Subjective Remarks Contacted due to hypotension, tachycardia. Systolic blood pressure 110, currently tachycardic with heart rate 94. Although heart rate has been up to 110 Patient seen this morning around 11 AM. He reports that shortness of breath somewhat worse starting yesterday. Denies any cough. He reports that he usually has fluid restrictions, however here has been drinking well. Objective Vital Signs Date Time Temp Pulse Resp B/P (MAP) Pulse Ox O2 Delivery O2 Flow Rate FiO2 07/05/17 05:17 97.9 119 18 107/58 (74) 07/04/17 17:54 97.7 94 16 124/81 (95) 99 I/O 07/04/17 07/04/17 07/04/17 07/05/17 07/05/17 07/05/17 06:59 14:59 22:59 06:59 14:59 22:59 Intake Total 360 ml 840 ml Balance 360 ml 840 ml Intake Oral 360 ml 600 ml Oral Supplement 240 ml # Voids 3 2 Imaging Last Impressions Head CT 07/01/17 0000 Signed Impressions: Service Date/Time: Sunday, July 02, 2017 15:40 - CONCLUSION: Negative for acute process. Willy Heller MD FACR Chest X-Ray 06/30/17 0000 Signed Impressions: Service Date/Time: Friday, June 30, 2017 12:23 - CONCLUSION: 1. Cardiomegaly without radiographic evidence to suggest CHF. 2. Blunting of the right costophrenic angle either related to a tiny effusion or pleural scarring. Riley Elena Jr., MD Objective Remarks GENERAL: Patient lying in bed on side. Awake. Alert. SKIN: Warm and dry. HEAD: Normocephalic. EYES: No scleral icterus. No injection or drainage. NECK: Supple, trachea midline. No lymphadenopathy. CARDIOVASCULAR: Regular rate and rhythm without murmurs, gallops, or rubs. RESPIRATORY: Breath sounds equal bilaterally. No accessory muscle use. No wheezes or rhonchi. GASTROINTESTINAL: Abdomen soft, non-tender, nondistended. MUSCULOSKELETAL: No cyanosis, or edema. BACK: Nontender without obvious deformity. No CVA tenderness. A/P Assessment and Plan Mr. Bae is a 77 year old male with a history of Cardiomyopathy, systolic CHF , CKD who was admitted to the psychiatry service under lockett act. Hospitalist service was consulted for medical management. //Adjustment disorder - management per psychiatry //Cardiomyopathy - EF reportedly 20%. // Chronic systolic congestive heart failure // Paroxysmal atrial fibrillation - Continue metoprolol succinate 12.5mg Qday, digoxin 0.125mg Qday, Amiodarone 200mg Qday - Continue Lipitor 40mg QHS. - If creatinine 1.44 is this patient's baseline, we should also consider GIULIANA inhibitor - BP is on the lower side. It would be difficult to initiate any diuretics ( Lasix, Aldactone). - [id number] score would be 5 (Age, DM, CHF, PVD) - I have tried to contact patient's daughter without success. - Patient is currently hemodynamically stable, CHF is well compensated. Afib is well controlled. - I would recommend discussion with outpatient PCP and/or outpatient cardiology regarding Anti-coagulation. - It would be strongly advisable to obtain an outpatient pasteuriser operator with regards to Cardiomyopathy and Afib. -07/05. Contacted for hypertension, tachycardia. Heart rate has been up to 110. Patient reporting increased shortness of breath since yesterday. Metoprolol has been held. Patient has a pacemaker, and is supposed to be getting metoprolol, however this was held. Also have been holding digoxin. We'll reorder these medications to be given. Chest x-ray ordered and pending. EKG with no acute findings, although it does appear that rhythm is only now intermittently paced - will control heart rate, and cardiac function should improve with pacer. Fluid restrictions 15 mL daily. //Dyspnea - likely due to cardiomyopathy, CHF. - Will continue DuoNeb. CXR reviewed by me on 06/30/2017 - shows enlarged heart. - BNP is 1456. No evidence of fluid overload, however. BP is on the lower side. Patient will not tolerate diuretics well. - Supplemental O2 to keep O2 sat > 88%. -07/05. Worsening shortness of breath, possibly secondary to fluid overload. Labs pending. Management as above. Chest x-ray ordered and pending. // CKD stage III - Continue to monitor periodically. Avoid nephrotoxins. //BPH - Continue Tamsulosin 0.4mg Qday. // Elevated TSH - Free T4 within normal range. This is likely subclinical hypothyroidism. //Full code. Ambulation. Stuart Estrada MD Jul 05, 2017 11:44
[2017-07-05 12:39] LABS: AUTOMATED NEUTROPHIL # 4.6 TH/MM3 (1.8-7.7); BASOPHIL % 0.5 % (0.0-2.0); EOSINOPHIL # 0.1 TH/MM3 (0-0.4); EOSINOPHIL % 1.2 % (0.0-4.0); HEMATOCRIT 30.3 % (39.0-51.0); LYMPH % 9.9 % (9.0-44.0); LYMPHOCYTE # 0.6 TH/MM3 (1.0-4.8); MEAN CELL VOLUME 89.7 FL (80.0-100.0); MEAN CORPUSCULAR HEMOGLOBIN 29.7 PG (27.0-34.0); MEAN CORPUSCULAR HGB CONC 33.1 % (32.0-36.0); NEUT % 80.4 % (16.0-70.0); PLATELET COUNT 150 TH/MM3 (150-450); RED BLOOD COUNT 3.38 MIL/MM3 (4.50-5.90); RED CELL DISTRIBUTION WIDTH 13.8 % (11.6-17.2); WHITE BLOOD COUNT 5.7 TH/MM3 (4.0-11.0)
[2017-07-05 12:42] LABS: BICARBONATE 25.9 MEQ/L (21.0-32.0); MAGNESIUM 2.4 MG/DL (1.5-2.5)
--- NOTE | 2017-07-05 12:46 | HHI.PYPN ---
Subjective Remarks Patient seen in his room with nurse Ten and counselor jelly. Chart reviewed. Patient laying in bed with his nasal oxygen angry irritable demanding his "medicine" from his time in [place]. The counselor has been a contact with patient's daughter who lives in [place]. Daughter would like her Ten placed in a facility near her if at all possible. We will add Seroquel 25 mg 8 AM and 6 PM to the regimen Review of Systems Except as stated in HPI: all other systems reviewed are Neg Objective Alert: Yes [place]: Person, Place Mood: Depressed, Oppositional Affect: Other (irritable) Memory Intact: Comment (very poor) Hallucinations: Other (denies) Delusions: Yes Delusion Type: Grandiose (vague), Paranoid (concerning medications) Suicidal: Ideation (denies) Homicidal: Ideation (denies) Insight/Judgment Very poor Labs Test 07/05/17 12:00 Blood Urea Nitrogen 47 MG/DL Creatinine 1.28 MG/DL Random Glucose 119 MG/DL Calcium Level 8.3 MG/DL Magnesium Level 2.4 MG/DL Sodium Level 141 MEQ/L Potassium Level 4.0 MEQ/L Chloride Level 108 MEQ/L Carbon Dioxide Level 25.9 MEQ/L Anion Gap 7 MEQ/L Estimat Glomerular Filtration Rate 66 ML/MIN Vitals/IOs Vital Signs Date Time Temp Pulse Resp B/P (MAP) Pulse Ox O2 Delivery O2 Flow Rate FiO2 07/05/17 05:17 97.9 119 18 107/58 (74) 07/04/17 17:54 99 Assessment & Plan Problem List: (1) Adjustment disorder with mixed disturbance of emotions and conduct ICD Codes: F43.25 - Adjustment disorder with mixed disturbance of emotions and conduct Assessment & Plan Estimated LOS: days patient continues irritable and angry with little insight. She medication adjustments above Justification for Cont. Inpt. At this time patient will decompensate the place to the lower level of care Discharge Planning To be determined Request HC Surrog/Guard Advoc?: No Eliu Valdivia MD Jul 05, 2017 12:46
[2017-07-05 12:47] LABS: HEMO FLAGS AUTO DIFF
[2017-07-05 12:56] LABS: DIGOXIN 0.6 NG/ML (0.8-2.0)
[2017-07-05 13:00] VITALS: BP 105/65; PULSE 88; RESP 16; TEMP 97.5; O2SAT 99
[2017-07-05 13:14] LABS: BASOPHILS 1 % (0-2); CORRECTED NUCLEATED RBC 2 /100 WBC (0-0); MYELOCYTES 1 % (0-0); NEUTROPHIL # MANUAL DIFF 4.6 TH/MM3 (1.8-7.7); POLYS (SEG NEUTROPHILS) 80 % (16-70); WBC DIFF SAMPLE 100
[2017-07-05 13:15] LABS: OVALOCYTES 1+ (NORMAL); PLATELET ESTIMATE SMEAR NORMAL (NORMAL); PLATELET MORPHOLOGY NORMAL (NORMAL); SCAN/DIFF FINAL DIFF MANUAL
--- NOTE | 2017-07-05 13:52 | RADRPT ---
EXAM DATE/TIME: 07/05/2017 13:36 [facility] COMPARISON: CHEST SINGLE AP, June 30, 2017, 12:23. INDICATIONS : Short of breath and abdominal pain. MEDICAL HISTORY : Cardiovascular disease. Hypertension. SURGICAL HISTORY : Pacemaker. ENCOUNTER: Subsequent ACUITY: 3 days PAIN SCORE: 8/10 LOCATION: Bilateral chest & abdomen FINDINGS: Pacer is in good position. There is compensated cardiomegaly without overt congestive failure. Mild hyperinflation is evident. Minimal stable parenchymal changes are seen in the right midlung. There is no pneumothorax or pleural effusion. CONCLUSION: Compensated cardiomegaly with 3-lead pacer. Mild hyperinflation. Willy Heller MD FACR on July 05, 2017 at 13:49 Board Certified Radiologist. This report was verified electronically.
[2017-07-05] MEDS: QUEtiapine FUMARATE 25 MG TAB PO SCH (18:48)
--- NOTE | 2017-07-05 19:57 | EKG ---
Date Performed: 07/05/2017 Time Performed: 10:42:52 PTAGE: 77 years EKG: ELECTRONIC VENTRICULAR PACEMAKER ABNORMAL RHYTHM ECG PREVIOUS TRACING : 06/30/2017 10.23 DOCTOR: Tamiko Cuello Interpretating Date/Time 07/05/2017 19:56:04
[2017-07-05 21:08] VITALS: BP 99/63; PULSE 84; RESP 19; TEMP 97.1
[2017-07-05] MEDS: ATORVASTATIN 40 MG TAB PO SCH (21:17)
[2017-07-06 05:46] VITALS: BP 95/50; PULSE 75; RESP 16; TEMP 97.6; O2SAT 98
--- NOTE | 2017-07-06 09:40 | HHI.PYPN ---
Subjective Remarks Patient seen in his room with nurse Courtney. Chart review. Patient compliant medications. Neurology consult also noted. CT scan of the brain also noted. Patient continues alert oriented irritable somewhat crusty and demanding. Becomes angry when we discuss plans. Placement. Stating he wants to be discharged. Though remains on nasal oxygen. Will have PT evaluate as the patient's ambulatory skill. It appears his daughter is willing to come pick him up and return him to the [facility] and working with placement Review of Systems Except as stated in HPI: all other systems reviewed are Neg Objective Alert: Yes [place]: Person, Place Mood: Depressed, Oppositional Affect: Other (irritable) Memory Intact: Comment (very poor) Hallucinations: Other (denies) Delusions: Yes Delusion Type: Grandiose (vague), Paranoid (concerning medications) Suicidal: Ideation (denies) Homicidal: Ideation (denies) Insight/Judgment Poor Labs Test 07/05/17 12:00 White Blood Count 5.7 TH/MM3 Red Blood Count 3.38 MIL/MM3 Hemoglobin 10.0 GM/DL Hematocrit 30.3 % Mean Corpuscular Volume 89.7 FL Mean Corpuscular Hemoglobin 29.7 PG Mean Corpuscular Hemoglobin Concent 33.1 % Red Cell Distribution Width 13.8 % Platelet Count 150 TH/MM3 Mean Platelet Volume 8.7 FL Neutrophils (%) (Auto) 80.4 % Lymphocytes (%) (Auto) 9.9 % Monocytes (%) (Auto) 8.0 % Eosinophils (%) (Auto) 1.2 % Basophils (%) (Auto) 0.5 % Neutrophils # (Auto) 4.6 TH/MM3 Lymphocytes # (Auto) 0.6 TH/MM3 Monocytes # (Auto) 0.5 TH/MM3 Eosinophils # (Auto) 0.1 TH/MM3 Basophils # (Auto) 0.0 TH/MM3 CBC Comment AUTO DIFF Differential Total Cells Counted 100 Neutrophils % (Manual) 80 % Lymphocytes % 10 % Monocytes % 8 % Basophils % 1 % Neutrophils # (Manual) 4.6 TH/MM3 Myelocytes 1 % Nucleated Red Blood Cells 2 /100 WBC Differential Comment FINAL DIFF MANUAL Platelet Estimate NORMAL Platelet Morphology Comment NORMAL Ovalocytes 1+ Blood Urea Nitrogen 47 MG/DL Creatinine 1.28 MG/DL Random Glucose 119 MG/DL Calcium Level 8.3 MG/DL Magnesium Level 2.4 MG/DL Sodium Level 141 MEQ/L Potassium Level 4.0 MEQ/L Chloride Level 108 MEQ/L Carbon Dioxide Level 25.9 MEQ/L Anion Gap 7 MEQ/L Estimat Glomerular Filtration Rate 66 ML/MIN B-Type Natriuretic Peptide 1751 PG/ML Digoxin Level 0.6 NG/ML Vitals/IOs Vital Signs Date Time Temp Pulse Resp B/P (MAP) Pulse Ox O2 Delivery O2 Flow Rate FiO2 07/06/17 05:46 97.6 75 16 95/50 (65) 98 Intake and Output 07/06/17 07/06/17 07/06/17 07:59 15:59 23:59 Intake Total 240 ml Balance 240 ml Assessment & Plan Problem List: (1) Adjustment disorder with mixed disturbance of emotions and conduct ICD Codes: F43.25 - Adjustment disorder with mixed disturbance of emotions and conduct Assessment & Plan Estimated LOS: days patient continues irritable "feisty" though no other behavioral problems. He continues to isolate though he does get up for meals and toileting. We continue to work patient's daughter related to placement issues Justification for Cont. Inpt. At this time patient will decompensate placed in the lower level of care Discharge Planning To be determined Request HC Surrog/Guard Advoc?: No Eliu Valdivia MD Jul 06, 2017 09:40
[2017-07-06] MEDS: TAMSULOSIN HCL 0.4 MG CAP PO SCH (09:42)
[2017-07-06] MEDS: AMIODARONE 200 MG TAB PO SCH (09:42)
[2017-07-06] MEDS: QUEtiapine FUMARATE 25 MG TAB PO SCH ×2 (09:42→18:20)
[2017-07-06] MEDS: NICOTINE 21 MG/24 HR PATCH T-DERMAL SCH (09:44)
[2017-07-06] MEDS: METOPROLOL SUCCINATE 25 MG EXTENDED RELEASE TAB PO SCH (09:44)
[2017-07-06] MEDS: REMOVE OLD PATCH T-DERMAL SCH (09:45)
[2017-07-06] MEDS ORDERED: CHOLECALCIFEROL (VIT D3) 5000 UNIT CAP PO ONE (10:00)
[2017-07-06 16:57] VITALS: BP 97/60; PULSE 73; RESP 18; TEMP 97.6
--- NOTE | 2017-07-06 20:38 | HHI.PR ---
Subjective Remarks Follow up for hypotension, tachycardia. Pt seen and evaluated. Reports feeling "fine". Pt denied chest pain or feeling "light headed." He denied shortness of breath. Pt stated he is "not getting my medication." He denied cough, fever, shortness of breath, NVD, abdominal or chest pain. Objective Vitals Vital Signs Date Time Temp Pulse Resp B/P (MAP) Pulse Ox O2 Delivery O2 Flow Rate FiO2 07/06/17 16:57 97.6 73 18 97/60 (72) 07/06/17 05:46 97.6 75 16 95/50 (65) 98 07/05/17 21:08 97.1 84 19 99/63 (75) I/O 07/05/17 07/05/17 07/05/17 07/06/17 07/06/17 07/06/17 07:00 15:00 23:00 07:00 15:00 23:00 Intake Total 220 ml 720 ml 480 ml Balance 220 ml 720 ml 480 ml Intake Oral 220 ml 720 ml 480 ml # Voids 2 1 1 Result Diagram: 07/05/17 1200 07/05/17 1200 Imaging Last Impressions Chest X-Ray 07/05/17 0000 Signed Impressions: Service Date/Time: Wednesday, July 05, 2017 13:36 - CONCLUSION: Compensated cardiomegaly with 3-lead pacer. Mild hyperinflation. Willy Heller MD FACR Head CT 07/01/17 0000 Signed Impressions: Service Date/Time: Sunday, July 02, 2017 15:40 - CONCLUSION: Negative for acute process. Willy Heller MD FACR Objective Remarks GENERAL: Pt encountered laying a bed, NAD. SKIN: Warm and dry. HEAD: Normocephalic. EYES: No scleral icterus. No injection or drainage. NECK: Supple, trachea midline. No lymphadenopathy. CARDIOVASCULAR: Regular rate and rhythm without murmurs, gallops, or rubs. RESPIRATORY: Breath sounds equal bilaterally. No wheezes rhonchi or crackles. No accessory muscle use. Pt was not wearing nasal cannula; oxygen concentrator turned off. GASTROINTESTINAL: Abdomen soft, non-tender, nondistended. MUSCULOSKELETAL: No cyanosis, or edema. PSYCHIATRIC: Appropriate mood and affect. Patient was pleasant and cooperative. Procedures None. Medications and IVs Current Medications Medications (Trade) Dose Ordered Sig/Javon Route Start Time Stop Time Status Last Admin (Ativan) 0.5 mg Q12H PRN PO 06/29/17 17:45 07/04/17 21:07 (Ativan Inj) 0.5 mg Q12H PRN IM 06/29/17 17:45 (Benadryl) 25 mg Q6H PRN PO 06/29/17 17:45 06/29/17 21:17 (Benadryl Inj) 25 mg Q6H PRN IM 06/29/17 17:45 (Tylenol) 650 mg Q4H PRN PO 06/29/17 17:45 06/30/17 09:04 (Milk Of Magnesia Liq) 30 ml DAILY PRN PO 06/29/17 17:45 (Mag-Al Plus Susp Liq) 30 ml Q6H PRN PO 06/29/17 17:45 (Habitrol 21 Mg Patch.24 Hr) 1 patch DAILY T-DERMAL 06/30/17 09:00 Miscellaneous Information 1 DAILY T-DERMAL 06/30/17 09:00 (Cordarone) 200 mg DAILY PO 06/30/17 09:00 07/05/17 09:00 (Lipitor) 40 mg HS PO 06/29/17 21:00 07/05/17 21:17 (Lanoxin) 0.125 mg MoWeFr@0900 PO 06/30/17 09:00 06/30/17 08:11 (Flomax) 0.4 mg DAILY PO 06/30/17 09:00 07/06/17 09:42 (Pill Splitter) 1 ea UNSCH PRN OTHER 06/29/17 18:30 (Duoneb Neb) 1 ampule Q4HR NEB PRN NEB 06/30/17 09:15 (Ultram) 50 mg Q12H PRN PO 06/30/17 09:15 07/04/17 21:07 (Tylenol) 650 mg Q4H PRN PO 06/30/17 12:00 (SEROquel) 25 mg BID@0800,1800 PO 07/05/17 18:00 07/06/17 18:20 (Toprol Xl) 25 mg DAILY PO 07/06/17 09:00 (Vitamin D3) 5,000 units DAILY PO 07/07/17 09:00 Urinary Catheter: No A/P Problem List: (1) Adjustment disorder with mixed disturbance of emotions and conduct ICD Code: F43.25 - Adjustment disorder with mixed disturbance of emotions and conduct (2) Diabetes mellitus ICD Code: E11.9 - Type 2 diabetes mellitus without complications (3) CKD (chronic kidney disease) stage 3, GFR 30-59 ml/min ICD Code: N18.3 - Chronic kidney disease, stage 3 (moderate) (4) Systolic CHF, chronic ICD Code: I50.22 - Chronic systolic (congestive) heart failure (5) Cardiomyopathy ICD Code: I42.9 - Cardiomyopathy, unspecified Assessment and Plan Mr. Bae is a 77 year old male with a history of Cardiomyopathy, systolic CHF , CKD who was admitted to the psychiatry service under lockett act. Hospitalist service was consulted for medical management. Hypotension: Various blood pressure medication held due to condition. Tachycardia: Vitals signs evidence normal rate. CHF: chest xray does not evidence overt signs of CHF. //Adjustment disorder - management per psychiatry //Cardiomyopathy - EF reportedly 20%. // Chronic systolic congestive heart failure // Paroxysmal atrial fibrillation - Continue metoprolol succinate 12.5mg Qday, digoxin 0.125mg Qday, Amiodarone 200mg Qday - Continue Lipitor 40mg QHS. - If creatinine 1.44 is this patient's baseline, we should also consider GIULIANA inhibitor - BP is on the lower side. It would be difficult to initiate any diuretics ( Lasix, Aldactone). - [id number] score would be 5 (Age, DM, CHF, PVD) - I have tried to contact patient's daughter without success. - Patient is currently hemodynamically stable, CHF is well compensated. Afib is well controlled. - I would recommend discussion with outpatient PCP and/or outpatient cardiology regarding Anti-coagulation. - It would be strongly advisable to obtain an outpatient bilingual instructor with regards to Cardiomyopathy and Afib. -07/05. Contacted for hypertension, tachycardia. Heart rate has been up to 110. Patient reporting increased shortness of breath since yesterday. Metoprolol has been held. Patient has a pacemaker, and is supposed to be getting metoprolol, however this was held. Also have been holding digoxin. We'll reorder these medications to be given. Chest x-ray ordered and pending. EKG with no acute findings, although it does appear that rhythm is only now intermittently paced - will control heart rate, and cardiac function should improve with pacer. Fluid restrictions 15 mL daily. //Dyspnea - likely due to cardiomyopathy, CHF. - Will continue DuoNeb. CXR reviewed by me on 06/30/2017 - shows enlarged heart. - BNP is 1456. No evidence of fluid overload, however. BP is on the lower side. Patient will not tolerate diuretics well. - Supplemental O2 to keep O2 sat > 88%. -07/05. Worsening shortness of breath, possibly secondary to fluid overload. Labs pending. Management as above. Chest x-ray ordered and pending. -Chest xray does not evidence overt signs of congestive heart failure. // CKD stage III - Continue to monitor periodically. Avoid nephrotoxins. //BPH - Continue Tamsulosin 0.4mg Qday. // Elevated TSH - Free T4 within normal range. This is likely subclinical hypothyroidism. //Full code. Ambulation. Case discussed with pt and Dr. Estrada. Kali Russell Jr. Jul 06, 2017 20:38
[2017-07-06] MEDS: ATORVASTATIN 40 MG TAB PO SCH (21:31)
[2017-07-07 06:39] VITALS: BP 93/53; PULSE 93; RESP 16; TEMP 97.8; O2SAT 95
[2017-07-07] MEDS: QUEtiapine FUMARATE 25 MG TAB PO SCH ×2 (08:00→18:00)
[2017-07-07] MEDS: TAMSULOSIN HCL 0.4 MG CAP PO SCH (09:00)
[2017-07-07] MEDS: AMIODARONE 200 MG TAB PO SCH (09:00)
[2017-07-07] MEDS: CHOLECALCIFEROL (VIT D3) 5000 UNIT CAP PO SCH (09:00)
[2017-07-07] MEDS: DIGOXIN 0.125 MG TAB PO SCH (09:00)
[2017-07-07] MEDS: NICOTINE 21 MG/24 HR PATCH T-DERMAL SCH (09:00)
[2017-07-07] MEDS: REMOVE OLD PATCH T-DERMAL SCH (09:00)
[2017-07-07] MEDS: METOPROLOL SUCCINATE 25 MG EXTENDED RELEASE TAB PO SCH (09:00)
[2017-07-07 09:18] VITALS: BP 101/67; PULSE 86
--- NOTE | 2017-07-07 13:46 | HHI.PYPN ---
Subjective Remarks Patient seen in his room with nurse Cristel, chart review, patient compliant medications. Patient continues somewhat irritable and "feisty". Still does not have much insight into his behaviors are led to this hospitalization. However he denies suicidality homicidality voices or visions. Continues compliant with his medications. Counselor Lori has talked with patient's daughter. Daughter has arranged an CUSTODIAL placement in [place] by the name of [facility]. Patient's granddaughter who lives local will pick him up. They will meet with patient's daughter who is driving from [place]. That daughter will then take the patient back to [facility] in [place] follow-up mental health services through that facility Review of Systems Except as stated in HPI: all other systems reviewed are Neg Objective Alert: Yes [place]: Person, Place Mood: Depressed, Oppositional Affect: Other (irritable) Memory Intact: Comment (very poor) Hallucinations: Other (denies) Delusions: Yes Delusion Type: Paranoid (markedly decreased) Suicidal: Ideation (denies) Homicidal: Ideation (denies) Insight/Judgment Poor Vitals/IOs Vital Signs Date Time Temp Pulse Resp B/P (MAP) Pulse Ox O2 Delivery O2 Flow Rate FiO2 07/07/17 09:18 86 101/67 (78) 07/07/17 06:39 97.8 16 95 Intake and Output 07/07/17 07/07/17 07/08/17 08:00 16:00 00:00 Intake Total 360 ml Balance 360 ml Assessment & Plan Problem List: (1) Adjustment disorder with mixed disturbance of emotions and conduct ICD Codes: F43.25 - Adjustment disorder with mixed disturbance of emotions and conduct Assessment & Plan Estimated LOS: days visions have been made by patient's granddaughter and daughter to pickle sorter patient tomorrow morning for them to meet and daughter to transport patient to the [place] area to when facility called [facility]. Less patient to be discharged tomorrow Justification for Cont. Inpt. See above Discharge Planning See above Request HC Surrog/Guard Advoc?: No Eliu Valdivia MD Jul 07, 2017 13:46
[2017-07-07 18:00] VITALS: BP 102/61; PULSE 81; RESP 16; TEMP 97.8; O2SAT 92
[2017-07-07] MEDS: ATORVASTATIN 40 MG TAB PO SCH (20:54)
[2017-07-08 05:41] VITALS: BP 94/60; PULSE 83; RESP 19; TEMP 97.7; O2SAT 95
[2017-07-08] MEDS: traMADol HCL 50 MG TAB PO PRN (06:34)
[2017-07-08] MEDS: QUEtiapine FUMARATE 25 MG TAB PO SCH (08:00)
[2017-07-08] MEDS ORDERED: METO25TA6 PO (08:16)
[2017-07-08] MEDS ORDERED: QUET1TAB7 PO (08:16)
[2017-07-08] MEDS ORDERED: TAMS5CAP PO (08:16)
[2017-07-08] MEDS ORDERED: DIGO0.12 PO (08:16)
[2017-07-08] MEDS ORDERED: ATOR40TA16 PO (08:16)
[2017-07-08] MEDS ORDERED: AMIO200T PO (08:16)
[2017-07-08] MEDS ORDERED: CHOL5000 PO (08:16)
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
[2017-07-08] MEDS: NICOTINE 21 MG/24 HR PATCH T-DERMAL SCH (08:30)
[2017-07-08 08:45] VITALS: BP 112/62; PULSE 82; RESP 16; O2SAT 98
[2017-07-08] MEDS: TAMSULOSIN HCL 0.4 MG CAP PO SCH (09:00)
[2017-07-08] MEDS: CHOLECALCIFEROL (VIT D3) 5000 UNIT CAP PO SCH (09:00)
[2017-07-08] MEDS: REMOVE OLD PATCH T-DERMAL SCH (09:00)
[2017-07-08] MEDS: METOPROLOL SUCCINATE 25 MG EXTENDED RELEASE TAB PO SCH (09:00)
[2017-07-08] MEDS: AMIODARONE 200 MG TAB PO SCH (09:00)
--- NOTE | 2017-07-08 09:40 | HHI.PR ---
Subjective Remarks Follow up for hypotension, tachycardia. Pt seen and evaluated. Reports hearing his pacer had a series of 4 beeps "4 times yesterday". Pt said he is having some shortness of breath upon exertion. He denied cough, fever, shortness of breath, NVD, abdominal or chest pain. Per RN pt has not had shortness of breath. Pt did report to nursing staff yesterday the beeping episode. Per Dr. Valdivia, pt is to be discharged from psychiatric service later today. [employer] was called and the pacer is not there's. [employer] has been called and identified the device as their's. Per Dr. Estrada , [employer] is sending a nanoscience technician to interrogate the device. Objective Vitals Vital Signs Date Time Temp Pulse Resp B/P (MAP) Pulse Ox O2 Delivery O2 Flow Rate FiO2 07/08/17 08:45 82 16 112/62 (79) 98 07/08/17 05:41 97.7 83 19 94/60 (71) 95 07/07/17 18:00 97.8 81 16 102/61 (75) 92 I/O 07/07/17 07/07/17 07/07/17 07/08/17 07/08/17 07/08/17 07:00 15:00 23:00 07:00 15:00 23:00 Intake Total 720 ml 120 ml 480 ml 0 ml Balance 720 ml 120 ml 480 ml 0 ml Intake Oral 720 ml 120 ml 480 ml 0 ml # Voids 4 2 2 # Bowel Movements 0 0 0 Result Diagram: 07/05/17 1200 07/05/17 1200 Objective Remarks GENERAL: Pt encountered laying a bed, NAD. SKIN: Warm and dry. HEAD: Normocephalic. EYES: No scleral icterus. No injection or drainage. NECK: Supple, trachea midline. No lymphadenopathy. CARDIOVASCULAR: Regular rate and rhythm without murmurs, gallops, or rubs. RESPIRATORY: Breath sounds equal bilaterally. No wheezes rhonchi or crackles. No accessory muscle use. Pt was not wearing nasal cannula; oxygen concentrator turned on. Oxygen percentage was upper 90's. GASTROINTESTINAL: Abdomen soft, non-tender, nondistended. MUSCULOSKELETAL: No cyanosis, or edema. PSYCHIATRIC: Appropriate mood and affect. Patient was pleasant and cooperative. Procedures None. Medications and IVs Current Medications Medications (Trade) Dose Ordered Sig/Javon Route Start Time Stop Time Status Last Admin (Ativan) 0.5 mg Q12H PRN PO 06/29/17 17:45 07/04/17 21:07 (Ativan Inj) 0.5 mg Q12H PRN IM 06/29/17 17:45 (Benadryl) 25 mg Q6H PRN PO 06/29/17 17:45 06/29/17 21:17 (Benadryl Inj) 25 mg Q6H PRN IM 06/29/17 17:45 (Tylenol) 650 mg Q4H PRN PO 06/29/17 17:45 06/30/17 09:04 (Milk Of Magnesia Liq) 30 ml DAILY PRN PO 06/29/17 17:45 (Mag-Al Plus Susp Liq) 30 ml Q6H PRN PO 06/29/17 17:45 (Habitrol 21 Mg Patch.24 Hr) 1 patch DAILY T-DERMAL 06/30/17 09:00 Miscellaneous Information 1 DAILY T-DERMAL 06/30/17 09:00 (Cordarone) 200 mg DAILY PO 06/30/17 09:00 07/07/17 09:00 (Lipitor) 40 mg HS PO 06/29/17 21:00 07/07/17 20:54 (Lanoxin) 0.125 mg MoWeFr@0900 PO 06/30/17 09:00 07/07/17 09:00 (Flomax) 0.4 mg DAILY PO 06/30/17 09:00 07/07/17 09:00 (Pill Splitter) 1 ea UNSCH PRN OTHER 06/29/17 18:30 (Duoneb Neb) 1 ampule Q4HR NEB PRN NEB 06/30/17 09:15 (Ultram) 50 mg Q12H PRN PO 06/30/17 09:15 07/08/17 06:34 (Tylenol) 650 mg Q4H PRN PO 06/30/17 12:00 (SEROquel) 25 mg BID@0800,1800 PO 07/05/17 18:00 07/07/17 18:00 (Toprol Xl) 25 mg DAILY PO 07/06/17 09:00 07/07/17 09:00 (Vitamin D3) 5,000 units DAILY PO 07/07/17 09:00 07/07/17 09:00 Urinary Catheter: No A/P Problem List: (1) Adjustment disorder with mixed disturbance of emotions and conduct ICD Code: F43.25 - Adjustment disorder with mixed disturbance of emotions and conduct (2) Diabetes mellitus ICD Code: E11.9 - Type 2 diabetes mellitus without complications (3) CKD (chronic kidney disease) stage 3, GFR 30-59 ml/min ICD Code: N18.3 - Chronic kidney disease, stage 3 (moderate) Status: Chronic (4) Systolic CHF, chronic ICD Code: I50.22 - Chronic systolic (congestive) heart failure Status: Chronic (5) Cardiomyopathy ICD Code: I42.9 - Cardiomyopathy, unspecified Assessment and Plan Mr. Bae is a 77 year old male with a history of Cardiomyopathy, systolic CHF , CKD who was admitted to the psychiatry service under lockett act. Hospitalist service was consulted for medical management. Hypotension: Various blood pressure medication held due to condition. Tachycardia: rate is controlled. Pace maker: [employer] contacted to interrogate unit. Per their report, normal functioning pace maker. Needs to be replaced in three months per [employer] report. Nurse informed pt will need to follow-up with household cook ANGELA in order to schedule replacement. Pt informed of the same.He verbalized undeerstanding of need to have his pace maker replaced in three months. //Adjustment disorder - management per psychiatry //Cardiomyopathy - EF reportedly 20%. // Chronic systolic congestive heart failure // Paroxysmal atrial fibrillation - Continue metoprolol succinate 12.5mg Qday, digoxin 0.125mg Qday, Amiodarone 200mg Qday - Continue Lipitor 40mg QHS. - If creatinine 1.44 is this patient's baseline, we should also consider GIULIANA inhibitor - BP is on the lower side. It would be difficult to initiate any diuretics ( Lasix, Aldactone). - [id number] score would be 5 (Age, DM, CHF, PVD) - I have tried to contact patient's daughter without success. - Patient is currently hemodynamically stable, CHF is well compensated. Afib is well controlled. - I would recommend discussion with outpatient PCP and/or outpatient cardiology regarding Anti-coagulation. - It would be strongly advisable to obtain an outpatient household cook with regards to Cardiomyopathy and Afib. -07/05. Contacted for hypertension, tachycardia. Heart rate has been up to 110. Patient reporting increased shortness of breath since yesterday. Metoprolol has been held. Patient has a pacemaker, and is supposed to be getting metoprolol, however this was held. Also have been holding digoxin. We'll reorder these medications to be given. Chest x-ray ordered and pending. EKG with no acute findings, although it does appear that rhythm is only now intermittently paced - will control heart rate, and cardiac function should improve with pacer. Fluid restrictions 15 mL daily. //Dyspnea - likely due to cardiomyopathy, CHF. - Will continue DuoNeb. CXR reviewed by me on 06/30/2017 - shows enlarged heart. - BNP is 1456. No evidence of fluid overload, however. BP is on the lower side. Patient will not tolerate diuretics well. - Supplemental O2 to keep O2 sat > 88%. -07/05. Worsening shortness of breath, possibly secondary to fluid overload. Labs pending. Management as above. Chest x-ray ordered and pending. -Chest xray does not evidence overt signs of congestive heart failure. // CKD stage III - Continue to monitor periodically. Avoid nephrotoxins. //BPH - Continue Tamsulosin 0.4mg Qday. // Elevated TSH - Free T4 within normal range. This is likely subclinical hypothyroidism. //Full code. Ambulation. Case discussed with pt, RN, and Drs. Estrada and Shea. Discharge Planning As per psychiatry. Problem Qualifiers (1) Diabetes mellitus: Qualified Codes: E11.9 - Type 2 diabetes mellitus without complications (2) Cardiomyopathy: Qualified Codes: I42.9 - Cardiomyopathy, unspecified Kali Russell Jr. Jul 08, 2017 09:39
== END 2017-07-08 14:15 | disposition home or self-care (01) | DRG 882 ==
LOC: H250 17:13
PROVIDERS: ADMIT Psychiatry & Neurology Psychiatry; ATTEND Psychiatry & Neurology Psychiatry
DX: F43.25 Adjustment disorder with mixed disturbance of emotions and conduct (principal); R64 Cachexia; I42.9 Cardiomyopathy, unspecified; F03.90 Unspecified dementia, unspecified severity, without behavioral disturbance, psychotic disturbance, mood disturbance, and anxiety; I13.0 Hypertensive heart and chronic kidney disease with heart failure and stage 1 through stage 4 chronic kidney disease, or unspecified chronic kidney disease; I95.9 Hypotension, unspecified; I50.22 Chronic systolic (congestive) heart failure; Z68.1 Body mass index [BMI] 19.9 or less, adult; E11.22 Type 2 diabetes mellitus with diabetic chronic kidney disease; E11.51 Type 2 diabetes mellitus with diabetic peripheral angiopathy without gangrene; I48.0 Paroxysmal atrial fibrillation; N18.3 Chronic kidney disease, stage 3 (moderate); E78.5 Hyperlipidemia, unspecified; N40.0 Benign prostatic hyperplasia without lower urinary tract symptoms; E03.9 Hypothyroidism, unspecified; R00.0 Tachycardia, unspecified; Z95.0 Presence of cardiac pacemaker
CPT/HCPCS: 70450; 71010; 80048; 80053; 80061; 80162; 82306; 82607; 83036; 83735; 83880; 84439; 84443; 85007; 85025; 85027; 93005; 94664; Q0163